=== PATIENT | female | born 1975 | race Caucasian/White ===

== ENCOUNTER 2018-10-04 07:43 | Day surgery (SDC) | payer BC ==
[2018-10-04] MEDS ORDERED: NACL 0.9% 1000 ML 1,000 ML IV SCH (08:00)
[2018-10-04] MEDS ORDERED: DIPRIVAN 10 MG/ML IV ONE ×2 (08:57)
--- NOTE | 2018-10-04 09:26 | Procedure Note ---
Date of procedure: 10/04/18 Pre-op diagnosis: Epigastric Pain/ Atypical Chest Pain Post-op diagnosis: other (R/O Eosinophilic Esophagitis/ Gastritis/ Gastric Polyp (Gastric Body)) Procedure: EGD with Biopsy Anesthesia: MAC Surgeon: FEDERICO PATEL Estimated blood loss: minimal Pathology: list Specimen disposition: to lab Condition: stable Disposition: same day (Treat with PPI and prn Dicyclomine. Avoid aspirin and NSAID for 5 days. follow up in 1 to 2 weeks ([phone]).)
[2018-10-04 09:34] VITALS: BP 106/59
--- NOTE | 2018-10-04 11:18 | Operative Report ---
PROCEDURE: EGD with biopsy. INDICATIONS: A 43-year-old female who had been having some epigastric pain and atypical chest pain that prompted her to go to the ER. EGD was done to make sure there was not any significant upper GI pathology present. DESCRIPTION OF PROCEDURE: The procedure was done after getting informed consent with MAC anesthesia. Instrument was passed through the hypopharynx into the esophagus, which showed some mild to moderate distal erosive esophagitis. Biopsy was done in the mid esophagus to rule out eosinophilic esophagitis. Additionally, there was a small and possibly an incidental gastric polyp noted in the gastric body that was biopsied and presence of antral gastritis. Biopsy was also done from the gastric body, gastric antrum and angularis incisura to rule out for H. pylori and atrophic gastritis. The pylorus was patent. Duodenum in the first and the second portion appeared normal. There was minimal bleeding from the biopsy sites. No complications associated with the procedure. ASSESSMENT: Epigastric pain, atypical chest pain, mild to moderate distal erosive esophagitis, rule out eosinophilic esophagitis, gastritis, gastric polyp, possibly incidental in the gastric body. Plan is to treat the patient with PPI, possibly with Bentyl on a p.r.n. basis. The patient will be asked to avoid aspirin and aspirin-related products for the next few days and follow up in the office in 1-2 weeks' time. RNNia was in the room throughout the entirety of the procedure. JOB# [id number] MCKENZIE/JORDYN
== END 2018-10-04 07:44 | disposition home or self-care (01) ==
LOC: GIO 07:43
DX: K31.7 Polyp of stomach and duodenum (principal); K29.70 Gastritis, unspecified, without bleeding; K21.0 Gastro-esophageal reflux disease with esophagitis; Z79.899 Other long term (current) drug therapy
CPT/HCPCS: 43239; 81025; 88305; 88342; J2704; J7030